=== PATIENT | male | born 1960 | race American Indian/Alaskan Native ===

== ENCOUNTER 2019-12-31 10:37 | Outpatient (CLI) | payer OTHER ==
--- NOTE | 2019-12-31 14:36 | Cat Scan Report ---
Neck CT 12/31/2019 HISTORY: 0.7 x 0.8 cm ROUNDED T2 HYPERINTENSITY AT THE MOST ANTERIOR/LATERAL INFERIOR MARGIN OF RIGHT TRAPEZIUS MUSCLE EXCLUDE MALIGNANCY ABNORMAL MRI FROM [facility] 08/15/2011 PT IN NO PAIN PT UNCLEAR TO WH Y THIS SCAN IS BEING PERFROMED FINDINGS: Contrast enhanced CT images of the soft tissues of the neck were obtained. Images are evalu ated in the axial, coronal, and sagittal planes. There is no evidence of abnormal neck mass, fluid collection, or inflammation. There is no evidence o f abnormal cervical adenopathy. There is a normal CT appearance to the parotid and submandibular glands. Thyroid gland is unremarkabl e. The description of a possible abnormality described in the indication of the report is unclear withou t the availability of prior studies. CT scanning images of the neck would not constitute. Evaluation of the trapezius muscle. IMPRESSION: No significant abnormality. All CT scans at this location are performed using dose reduction to ALARA by means of automated expos ure control. Signer Name: John Mckenna MD Signed: 12/31/2019 2:31 PM Workstation Name: [id number]
== END 2019-12-31 10:38 | disposition home or self-care (01) ==
LOC: CT 10:37
PROVIDERS: ATTEND Internal Medicine
DX: R22.1 Localized swelling, mass and lump, neck (principal)
CPT/HCPCS: 36415; 70491; 82565; 84520; Q9967